=== PATIENT | male | born 1940 | race Caucasian/White ===

== ENCOUNTER 2018-05-03 00:08 | Inpatient (IN) | payer OTHER ==
[~2018-05-03] VITALS: Ht 180.3 cm; Wt 88.9 kg
[2018-05-03] VITALS (16 sets, daily range): BP systolic 131–177; BP diastolic 48–96
[2018-05-03] MEDS ORDERED: AMITRIPTYLINE H25 M2 PO (00:19)
[2018-05-03] MEDS ORDERED: LISINOPRIL10 MG PO (00:19)
[2018-05-03] MEDS ORDERED: FINASTERIDE5 MG PO (00:19)
[2018-05-03 00:43] LABS: ABSOLUTE BASOPHILS 0.1 thou/uL (0.0-0.2); ABSOLUTE EOSINOPHILS 0.1 thou/uL (0.0-0.7); ABSOLUTE LYMPHOCYTES 1.5 thou/uL (0.8-5.3); ABSOLUTE MONOCYTES 0.7 thou/uL (0.0-1.2); BASOPHILS 0.7 %; EOSINOPHILS 0.6 %; HEMATOCRIT 41.4 % (42.0-52.0); HEMOGLOBIN 14.3 gm/dL (14.0-18.0); LYMPHOCYTES 11.3 %; MCH 29.9 pg (26.0-34.0); MCHC 34.5 g/dL (28.0-37.0); MCV 86.9 fL (80.0-100.0); MPV 8.6 fl. (7.2-11.1); NUCLEATED RBCS 0 /100WBC; PLATELET COUNT* 173 thou/uL (150-400); POLYS 82.4 %; RBC 4.77 mil/uL (4.50-6.00); RDW-CV 13.3 % (10.5-14.5); WBC 13.3 thou/uL (4.0-11.0)
[2018-05-03 00:50] LABS: ANION GAP 8 mmol/L (7-16); BUN 19 mg/dL (7-18); CALCIUM 9.4 mg/dL (8.5-10.1); CHLORIDE 103 mmol/L (98-107); CO2 28 mmol/L (21-32); CREATININE 1.3 mg/dL (0.6-1.3); GLUCOSE 150 mg/dL (70-99); POTASSIUM 3.8 mmol/L (3.5-5.1); SODIUM 139 mmol/L (136-145)
[2018-05-03 00:52] LABS: PROTIME 10.2 Seconds (9.20-11.50)
[2018-05-03 01:01] LABS: ALBUMIN 3.9 g/dL (3.4-5.0); ALKALINE PHOSPHATASE 95 U/L (46-116); NT-PRO BRAIN NAT PEPTIDE 201 pg/mL (<300); SGOT 22 U/L (15-37); SGPT 25 U/L (30-65); TOTAL BILIRUBIN 0.4 mg/dL (<0.1-1.0); TOTAL PROTEIN 7.5 g/dL (6.4-8.2); TROPONIN-I LEVEL <0.06 ng/mL (<0.06)
--- NOTE | 2018-05-03 02:50 | NUR ---
TOOK PERSONAL PRILOSEC PO--DR FERNANDES NOTIFIED
--- NOTE | 2018-05-03 06:10 | NUR ---
PT TO FLOOR APROX 0430. VITALS WNL. SEE MAR. SEE CHARTING. FALL PRECAUTIONS IN PLACE. HOULRY ROUNDING FOR SAFETY.
[2018-05-03 08:53] LABS: CALCIUM 9.2 mg/dL (8.5-10.1); POTASSIUM 3.9 mmol/L (3.5-5.1)
[2018-05-03 09:46] LABS: CHOLESTEROL 159 mg/dL (<200); HDL CHOLESTEROL 39 mg/dL (>40); LDL CHOLESTEROL 101 mg/dL (<100); SERUM ASSESSMENT Clear; TC:HDL 4.1 Ratio (Not establshd); TRIGLYCERIDE 99 mg/dL (<150); VLDL 20 mg/dL (<40)
--- NOTE | 2018-05-03 10:11 | NUR ---
5406 ASSUMED CARE OF PATIENT. PLEASE SEE DOCUMENTED ASSESSMENT. DR MCCORMACK TO SEE PATIENT. PLAN IS FOR HEART CATH
--- NOTE | 2018-05-03 12:08 | NUR ---
PT IN WOUND SPECIALIST, WILL SEE LATER
--- NOTE | 2018-05-03 12:16 | NUR ---
1200 BACK FROM DOCK GUARD. SEE POST CARDIAC CATH CHARTING
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
--- NOTE | 2018-05-03 14:00 | EKG ---
[place] [address] ELECTROCARDIOGRAM REPORT Name: KEIRY ESPINOZA Room: [address] IN ..#: [id number] Admission: 05/03/18 Attend Phys: Rasheed Andrade MD Discharge: Date of : 38 Report #: [id number] THIS REPORT FOR: //name// [facility] ED Test Date: 2018-05-03 Test Time: 00:22:29 Pat Name: KEIRY ALEXIS Department: Room: [facility] Gender: M Apprentice/Lineman: : 1940 Requested By: Keyanna Moses Order Number: [id number] MD: Heron Mcwilliams Measurements Intervals [place] Rate: 67 P: 61 [place]: 171 QRS: 27 QRSD: 97 T: 54 QT: 418 QTc: 442 Interpretive Statements Sinus rhythm Multiple ventricular premature complexes Borderline ST depression, lateral leads ST elevation, consider anterior injury No previous ECG available for comparison Electronically Signed On 05-03-2018 13:59:56 FRAME MAKER by Heron Mcwilliams [email or web address] <ELECTRONICALLY SIGNED> By: Heron Mcwilliams MD, [facility] 05/03/18 5587 0022 0022 Heron Mcwilliams MD, [facility] /EPI
--- NOTE | 2018-05-03 14:01 | EKG ---
[place] [address] ELECTROCARDIOGRAM REPORT Name: KEIRY ESPINOZA Room: [address] IN .R.#: [id number] Admission: 05/03/18 Attend Phys: Rasheed Andrade MD Discharge: Date of : 38 Report #: [id number] THIS REPORT FOR: //name// [facility] ED Test Date: 2018-05-03 Test Time: 00:44:32 Pat Name: KEIRY BERRYVALL Department: Room: [facility] Gender: Landcare Facilitator: Jessica IRWIN : 1940 Requested By: Keyanna Moses Order Number: [id number] MD: Heron Mcwilliams Measurements Intervals [place] Rate: 62 P: 48 CT: 167 QRS: 32 QRSD: 85 T: 70 QT: 408 QTc: 415 Interpretive Statements Sinus rhythm early repolarization Ventricular trigeminy Borderline ST depression, lateral leads Electronically Signed On 05-03-2018 14:00:50 SUPERVISOR IN CIRCUIT TESTING by Heron Mcwilliams [email or web address] <ELECTRONICALLY SIGNED> By: Heron Mcwilliams MD, [facility] 05/03/18 1400 0044 0044 Heron Mcwilliams MD, FAC /EPI
--- NOTE | 2018-05-03 15:20 | NUR ---
CARDIAC REHAB TO SEE PATIENT
--- NOTE | 2018-05-03 15:35 | EKG ---
[place] [address] ELECTROCARDIOGRAM REPORT Name: KEIRY ESPINOZA Room: [address] ADM IN .R.#: [id number] Admission: 05/03/18 Attend Phys: Rasheed Andrade MD Discharge: Date of : 38 Report #: [id number] THIS REPORT FOR: //name// [facility] ED Test Date: 2018-05-03 Test Time: 03:16:33 Pat Name: KEIRY ALEXIS Department: Room: [address] Gender: M Roll Shop Supervisor: [facility] : 1940 Requested By: Keyanna Moses Order Number: [id number] Ladan MD: Heron Mcwilliams Measurements Intervals [place] Rate: 55 P: 54 [place]: 165 QRS: 42 QRSD: 93 T: 74 QT: 425 QTc: 407 Interpretive Statements Sinus bradycardia Multiple ventricular premature complexes Electronically Signed On 05-03-2018 15:35:31 QUALITY ASSURANCE ADVISOR by Heron Mcwilliams [email or web address] <ELECTRONICALLY SIGNED> By: Heron Mcwilliams MD, [facility] 05/03/18 1535 0316 0316 Heron Mcwilliams MD, FACC /EPI
--- NOTE | 2018-05-03 15:45 | EKG ---
[place] [address] ELECTROCARDIOGRAM REPORT Name: KEIRY ESPINOZA Room: [address] ADM IN .R.#: [id number] Admission: 05/03/18 Attend Phys: Rasheed Andrade MD Discharge: Date of : 38 Report #: [id number] THIS REPORT FOR: //name// [facility] Test Date: 2018-05-03 Test Time: 13:25:17 Pat Name: KEIRY ESPINOZA Department: Room: [address] Gender: M Manager Applied: : 1940 Requested By: Heron Mcwilliams Order Number: [id number] Ladan MD: Heron Mcwilliams Measurements Intervals [place] Rate: 58 P: 50 [place]: 169 QRS: 44 QRSD: 94 T: 75 QT: 431 QTc: 424 Interpretive Statements Sinus rhythm Minimal ST depression, anterolateral leads Electronically Signed On 05-03-2018 15:44:56 CONVENTIONAL UNDERWRITER by Heron Mcwilliams [email or web address] <ELECTRONICALLY SIGNED> By: Heron Mcwilliams MD, [facility] 05/03/18 1544 1325 1325 Heron Mcwilliams MD, FACC /EPI
--- NOTE | 2018-05-03 17:24 | NUR ---
PATIENT PROGRESSING TOWARDS GOALS. CARDIAC CATH COMPLETED. CARDIAC REHAB SAW PATIENT. HEARTBURN AND CHEST PAIN RESOLVED WITH NO PVC'S NOTED NOW. SEE POST CATH CHARTING. DR MCCORMACK REVIEWED RESULTS WITH PATIENT. SO INCLUDED IN TEACHING
--- NOTE | 2018-05-03 18:32 | NUR ---
NINE BEAT RUN OF V TACH NOTED AND POSTED ON CHART. PT IS ASYMPTOMATIC.
--- NOTE | 2018-05-03 18:58 | CARD ---
[address] [address] CARDIAC CATH REPORT Name: KEIRY ESPINOZA Room: [address] IN [facility]#: [id number] Admission: 05/03/18 Attend Phys: Rasheed Andrade MD Discharge: Date of : 38 Report #: [id number] THIS REPORT FOR: //name// APPROVED REPORT Study performed: 05/03/2018 10:08:24 Patient Details Patient Status: In-Patient Room #: The patient is a 77 year-old male Event Personnel Heron Mcwilliams Weight Yardage Checker, Cyndie Jackman Heel Coverer Machine Operator, Rocio Butterfield RTR Monitor, Gilberto Aaron (R) Scrub Procedures Performed Art Access - R radial artery Right and Left Heart Cath w/or w/o Coronarie [facility]HC ARTIE Place w/wo Plasty Single RCA Indication Non-STEMI , Chest pain Risk Factors Hypertension Admission/Lab Medications/Medications given during procedure Glycoprotein IllbIlla Inhibitors, Heparin Unfract. Procedure Narrative The patient was brought electively to the Cardiac Catheterization Laboratory and was prepped and draped in a sterile manner. The right wrist was infiltrated with 2% Lidocaine subcutaneous anesthesia. A Slender Glidesheath sheath was inserted into the right radial artery. Coronary angiography was performed using coronary diagnostic catheters. The right coronary system was accessed and visualized with a Diagnostic 6Fr JR4 catheter. The left coronary system was accessed and visualized with a Diagnostic 6Fr JL4 catheter. The left ventricle was accessed and visualized with a Diagnostic 6F angled pigtail catheter. Left ventricular/Aortic Valve gradient assessed via catheter pullback. Left ventriculogram was performed in JETER projection. Closure device was deployed with a 6 Fr Vasc-Band Reg 24cm. Hemostasis was obtained with manual pressure following sheath removal without any complications. [place] [address] CARDIAC CATH REPORT Name: KEIRY ESPINOZA Room: [address] IN [facility].#: [id number] Admission: 05/03/18 Attend Phys: Rasheed Andrade MD Discharge: Date of : 38 Report #: [id number] procedure well and there were no complications associated with the procedure. There was no hematoma. Intraoperative Conscious Sedation Sedation start time: 1045 Case end Time: 1139 Versed 2 mg Fluoro Time: 13.1 minutes Dose: DAP 642253 cGycm2 1928 mGy Contrast Type and Amount: Omnipaque 380 ml Coronary Angiography The patient's coronary anatomy is co- dominant. Diagnostic Cath Left Main 0% stenosis LAD chronically occluded after the 2nd diagonal branch Diagonal 2 50% mid stenosis Circumflex 0% stenosis Right Coronary 80% proximal and 80% mid stenosis noted Left Ventriculography The left ventricular ejection fraction is estimated to be 35-40%. Left ventricular wall motion abnormalities are present. There is no mitral insufficiency. moderate hypokinesis noted of the mid and distal anterior wall and apex Hemodynamics The aortic pressure is 144/64 mmHg with a mean of 94 mmHg. The left ventricular pressure is 128/15 mmHg with a mean of mmHg. The left ventricular end diastolic pressure is 21 mmHg. There was no gradient across the aortic valve upon pullback. Pullback from the left ventricle to the aorta revealed no gradient across the aortic valve. PCI Technique Lesion Anticoagulation was achieved with Heparin. bolus of iv aggrastat given Patient was preloaded with Brillinta. Percutaneous coronary intervention was performed on the mid right coronary artery. The lesion stenosis prior to intervention was 80% with JESUS 3 flow. A 6Fr jcr4 Guide Catheter was used to engage the rca ostium. A BMW 190cm Interventional Guidewire was used to cross the lesion. BALLOON DILATION A Balloon catheter Trek RX 2.5 X 8 was inserted [place] [address] CARDIAC CATH REPORT Name: KEIRY ESPINOZA Room: [address]#: [id number] Admission: 05/03/18 Attend Phys: Rasheed Andrade MD Discharge: Date of : 38 Report #: [id number] 16.00atm for 15seconds. Repeat angiography revealed the following post-dilatation results: 30% stenosis. unable to cannulate rca ostium with neither am right amplatz I nor left amplatz I guide catheter STENT DEPLOYMENT A drug-eluting stent Rome RX Stent 2.92W01sa was inserted and inflated up to 14.00atm for 9seconds. Repeat angiography revealed the following post-stent deployment results: 0% stenosis. Additional Inflation: 17.00atm for 13seconds. Final angiography reveals 0 % stenosis with JESUS 3 flow. PCI Technique Lesion 2 Percutaneous Coronary Intervention was performed on the proximal right coronary artery. Percutaneous coronary intervention was performed on the proximal right coronary artery. The lesion stenosis prior to intervention was 80% with JESUS 3 flow. A 6Fr 3DRC Guide Catheter was used to engage the rca ostium. A BMW 190cm Interventional Guidewire was used to cross the lesion. Balloon Dilation A Balloon catheter Trek RX 2.5 X 8 was inserted and inflated up to 16.00atm for 3seconds. Repeat angiography revealed the following post-dilatation results: 30% stenosis. Stent Deployment A drug-eluting stent Rome RX Stent 2.44G20sz was inserted and inflated up to 14.00atm for 13seconds. Repeat angiography revealed the following post-stent deployment results: 0% stenosis. Additional Inflation: 20.00atm for 17seconds. Final angiography reveals 0 % stenosis with JESUS 3 flow. 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 80% stenosis noted of the proximal and mid rca 3. LVEF of 35-40% 4. successful placement of 2 drug eluting stents in the rca Recommendations Cardiac Rehabilitation Referral [facility] [place] [address] CARDIAC CATH REPORT Name: KEIRY ESPINOZA Room: [address] IN [facility].#: [id number] Admission: 05/03/18 Attend Phys: Rasheed Andrade MD Discharge: Date of : 38 Report #: [id number] Medications Administered Ticagrelor <ELECTRONICALLY SIGNED> By: Heron Mcwilliams MD, FACC 05/03/181856 56 56Dakeyanna Mcwilliams MD, FAC /INF
[2018-05-03 23:08] LABS: GLYCOHEMOGLOBIN (HGB A1C) 5.7 % (4.8-5.6)
[2018-05-04] VITALS: BP 173/85
[2018-05-04 00:50] LABS: HEMATOCRIT 41.7 % (42.0-52.0); HEMOGLOBIN 14.3 gm/dL (14.0-18.0); MCH 29.8 pg (26.0-34.0); MCHC 34.2 g/dL (28.0-37.0); MPV 8.7 fl. (7.2-11.1); RBC 4.79 mil/uL (4.50-6.00); RDW-CV 13.2 % (10.5-14.5); WBC 13.3 thou/uL (4.0-11.0)
--- NOTE | 2018-05-04 00:51 | NUR ---
PATIENTS MONITOR ALARMED AT [facility]. STAFF RESPONDED TO ROOM AND CALLED A CODE. COMPRESSIONS STARTED AND PATIENT WAS SHOCKED ONE TIME. PATIENT WOKE UP AFTER COMPRESSIONS RESTARTED POST SHOCK. CARDIOLOGY PAGED STAT. S/O CONTACTED, MESSAGE LEFT. DESIGNATED CONTACT CALLED, LEFT MESSAGE. LABS DRAWN, EKG AND VITALS OBTAINED POST ARREST. PATIENT BEING MOVED TO A ROOM CLOSER TO THE NURSES STATION. SIG OTHER RETURNED CALL AND SHE IS ON HER WAY IN.
[2018-05-04 00:58] LABS: CALCIUM 8.9 mg/dL (8.5-10.1); CREATININE 1.1 mg/dL (0.6-1.3); POTASSIUM 3.6 mmol/L (3.5-5.1)
[2018-05-04 04:00] VITALS: BP 124/67
[2018-05-04 05:12] LABS: HEMATOCRIT 39.2 % (42.0-52.0); HEMOGLOBIN 13.5 gm/dL (14.0-18.0); MCH 29.9 pg (26.0-34.0); MCHC 34.3 g/dL (28.0-37.0); MCV 86.9 fL (80.0-100.0); RBC 4.51 mil/uL (4.50-6.00); RDW-CV 13.1 % (10.5-14.5); WBC 13.1 thou/uL (4.0-11.0)
--- NOTE | 2018-05-04 05:54 | NUR ---
ASSUMED PATIENT CAREA AT 1900. PATIETN ALERT AND ORIENTED TIMES FOUR. CENTRAL LINE IN PLACE AND PATENT TO FLUSHES AND BLOOD DRAW. NO SKIN ISSUES NOTED AT THIS TIME. STATES "THE SWELLING IN MY SCROTUM IS GOING DOWN." ABLE TO AMBULATE TO THE RESTROOM INDEPENDENTLY. REMAINED ON 2L VIA NC THROUGH THE NIGHT. HOURLY ROUNDING AND PC TECHNICIAN COMPLETED CHARTED.
[2018-05-04 06:08] LABS: CALCIUM 8.8 mg/dL (8.5-10.1); MAGNESIUM 2.2 mg/dL (1.8-2.4)
[2018-05-04 06:09] LABS: TROPONIN-I LEVEL 18.58 ng/mL (<0.06)
--- NOTE | 2018-05-04 10:46 | CON ---
[address] [address] CONSULTATION Name: KEIRY ESPINOZA Room: [address] IN M.R.#: [id number] Admission: 05/03/18 Attend Phys: Rasheed Andrade MD Discharge: Date of : 38 Report #: [id number] THIS REPORT FOR: //name// CC: Rasheed Puentes DO DATE OF SERVICE: 05/03/2018 HISTORY OF PRESENT ILLNESS: The patient is a 77-year-old single white male who I was asked to see in the hospital after he complained of chest pain. The patient has no previous history of heart disease. He apparently has had a stress test in the past including one about 6 months ago at [place] and told there was no evidence of significant heart disease. He does go to the [facility] for his medications. He notes he was doing really well until yesterday he was attempting to retrieve a large objct from the trunk of his car. He struggled with it for a couple of hours. He then noticed a burning in his chest. There is no radiation to his arms or jaw. He did feel somewhat nauseated, short of breath. It persisted, so he finally came to the Emergency Room last night and was admitted. He denied the burning to be related to food. He had a little bit of flatulence, but no belching. He has had no recent blood in stool. He denied any recent fever or cough. He denied any trauma to his chest. He denied any rash on his chest. He has had no recent leg pain. He denied any exertional dyspnea, palpitations or syncope. PAST MEDICAL HISTORY: He has had previous hernia repair, mastoid surgery as a child, sinus surgery. He has been diagnosed with prostate cancer. He has sleep apnea, uses CPAP. He has high blood pressure. MEDICATIONS: Consist of Proscar, Elavil, lisinopril. ALLERGIES: He has an intolerance to AMOXICILLIN. FAMILY HISTORY: His mother had heart disease. SOCIAL HISTORY: He has been . He is single. 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 Lives here in [place]. No smoking. Drinks about 2 beers a day. REVIEW OF SYSTEMS: He has had no history of stroke. He has had peptic ulcer. No liver disease, no kidney disease, no acute psychiatric illness, no chronic skin condition. PHYSICAL EXAMINATION: GENERAL: Revealed an elderly male, lying in bed, appeared in no distress. VITAL SIGNS: He had a blood pressure of 140/70, pulse 60. [place] [address] CONSULTATION Name: KEIRY ESPINOZA Room: [address]#: [id number] Admission: 05/03/18 Attend Phys: Rasheed Andrade MD Discharge: Date of : 38 Report #: [id number] HEENT: He is anicteric. Conjunctivae pink. Mucous membranes moist. NECK: Veins nondistended. No carotid bruits. Neck supple. CHEST: Clear to auscultation. CARDIAC: Regular rate and rhythm without murmur. ABDOMEN: Soft, nontender. EXTREMITIES: Had no edema. Posterior tibial pulse 1+ bilaterally. SKIN: Cool and dry. NEUROLOGIC: Nonfocal. LYMPH: No adenopathy. MUSCULOSKELETAL: No joint effusion. DIAGNOSTIC DATA: His ECG on admission last night showed a sinus bradycardia, occasional PVC. There was an episode of trigeminy, nonspecific ST-segment changes were noted. There did appear to be early repolarization in leads V1 and V2. His workup in the Emergency Room last night, he had a portable chest x-ray that showed cardiomegaly, clear lung de jesus. LABORATORY DATA: Sodium 139, creatinine 1.3, glucose was 150. His troponin initially 0.06, second set was 0.11. White blood cell count 13.3, hemoglobin 14.3. IMPRESSION AND RECOMMENDATIONS: 1. Unstable angina. Recommend cardiac catheterization. 2. Hypertension. The patient is on DAVID inhibitor. 3. Elevated blood sugar, ruling out diabetes. 4. History of prostate cancer. 5. History of peptic ulcer disease. <ELECTRONICALLY SIGNED> By: Heron Mcwilliams MD, FACC 05/04/18 1046 0737 1102Davieron Mcwilliams MD, FACC /nt
[2018-05-04 11:53] VITALS: BP 98/54
--- NOTE | 2018-05-04 13:46 | EKG ---
[place] [address] ELECTROCARDIOGRAM REPORT Name: KEIRY ESPINOZA Room: [address] IN .R.#: [id number] Admission: 05/03/18 Attend Phys: Rasheed Andrade MD Discharge: Date of : 38 Report #: [id number] THIS REPORT FOR: //name// [facility] Test Date: 2018-05-04 Test Time: 00:43:18 Pat Name: KEIRY ESPINOZA Department: Room: [facility] Gender: M Market Consultant: : 1940 Requested By: Heron Mcwilliams Order Number: [id number] Reading MD: Hank Deleon Measurements Intervals [place] Rate: 68 P: 43 [place]: 159 QRS: 14 QRSD: 92 T: 66 QT: 410 QTc: 437 Interpretive Statements Sinus rhythm Anteroseptal infarct, age indeterminate Compared to ECG 05/03/2018 13:25:17 Myocardial infarct finding now present ST (T wave) deviation no longer present Electronically Signed On 05-04-2018 13:46:13 IRON ASSORTER by Hank Deleon [email or web address] <ELECTRONICALLY SIGNED> By: Hank Deleon MD, FAC 05/04/18 1346 0043 0043 Hank Deleon MD, [facility] /EPI
--- NOTE | 2018-05-04 13:47 | EKG ---
[place] [address] ELECTROCARDIOGRAM REPORT Name: KEIRY ESPINOZA Room: [address] ADM IN M.R.#: [id number] Admission: 05/03/18 Attend Phys: Rasheed Andrade MD Discharge: Date of : 38 Report #: [id number] THIS REPORT FOR: //name// [facility] Test Date: 2018-05-04 Test Time: 09:36:28 Pat Name: KEIRY ALEXIS Department: Room: [address] Gender: M Hand Developer: : 1940 Requested By: Hank Deleon Order Number: [id number] Reading MD: Hank Deleon Measurements Intervals [place] Rate: 57 P: 33 [place]: 163 QRS: 21 QRSD: 91 T: 86 QT: 439 QTc: 428 Interpretive Statements Sinus rhythm Ventricular premature complex Anterior infarct, age indeterminate Compared to ECG 05/03/2018 13:25:17 Ventricular premature complex(es) now present Myocardial infarct finding now present ST (T wave) deviation no longer present Electronically Signed On 05-04-2018 13:47:41 NUTRITION AIDES TEACHER by Hank Deleon [email or web address] <ELECTRONICALLY SIGNED> By: Hank Deleon MD, FACC 05/04/18 1347 0936 0936 Hank Deleon MD, FACC /EPI
[2018-05-04 16:23] VITALS: BP 109/55
[2018-05-04 20:00] VITALS: BP 106/52
[2018-05-04 23:55] VITALS: BP 111/64
[2018-05-05 04:00] VITALS: BP 104/58
--- NOTE | 2018-05-05 05:20 | NUR ---
PATIENT ARRIVED ON UNIT AT APPROX 5. FAMILY AT BEDSIDE. ADMISSION ASSESSMENT COMPLETED DOCUMENTED AND SOME EDUCATION DONE ON MEDICATIONS AND DIET. NO SKIN ISSUES NOTED. PATIENT VERBALIZED UNDERSTANDING OF ADMISSION. MANAGER SUPPORT AND HOURLY ROUNDING COMPLETED DOCUMENTED. BLOOD SUGARS CHECKED THROUGHOUT NIGHT
--- NOTE | 2018-05-05 05:39 | NUR ---
ASSUMED PATIENT CARE AT 1900. HOME CPAP HERE AND PATIENT WORE THROUGH THE NIGHT. NSR ON MONITOR THROUGH SHIFT. EDUCATION DONE ON MEDICATIONS AND FOLLOW UP CARE. PATIENT VERBALIZED UNDERSANDING. MINOR COMPLAINTS OF PAIN AT A 1 IN HIS CHEST. EDUCATED PATIENT ABOUT WHAT HAD HAPPENED THE PREV NIGHT. HOURLY ROUNDING AND WELL TESTER COMPLETED DOCUMENTED.
[2018-05-05 07:45] VITALS: BP 118/62
[2018-05-05 10:17] VITALS: BP 168/90
[2018-05-05] MEDS ORDERED: CARVEDILOL3.125 MG PO (10:17)
[2018-05-05] MEDS ORDERED: SPIRONOLACTONE25 MG PO (10:17)
[2018-05-05] MEDS ORDERED: ATORVASTATIN CA40 MG PO (10:17)
[2018-05-05] MEDS ORDERED: BRILINTA90 MG PO (10:17)
[2018-05-05] MEDS ORDERED: ASPIR 8181 MG PO (10:17)
[2018-05-05 12:00] VITALS: BP 102/63
[2018-05-05] MEDS ORDERED: NITROGLYCERIN0.4 MG SUBLING (12:00)
[2018-05-05 16:00] VITALS: BP 138/66
--- NOTE | 2018-05-05 17:38 | NUR ---
ASSUMED PT CARE AT 0730, FULL ASSESMENT DONE CHARTED. PT A/O X4, C/O SOME PAIN WITH INSPIRATION IN SUBSTERNAL CHEST. PT ENCORAGED TO COUGH AND DEEP BREATH, PT DENIES NEED FOR PAIN MEDS. VSS, PT SR/PVC'S ON THE MONITOR, LUISITO AT TIMES. DISCHARGE ORDERS RECIEVED, LIFE VEST REP IN TO FIT PT THIS AFTERNOON. PT AND SO INSTRUCTED ON NEW MEDS, AND FOLLOW UP APPTS. BOTH VERBALIZED UNDERSTANDING. PT LEFT UNIT WITH BELONGINGS AT APPROX 1740 WALKED OUT BY STAFF.
== END 2018-05-05 17:47 | disposition home or self-care (01) | DRG 246 ==
LOC: M.ERS 00:08 → M.TBA-ER 02:26 → M.2W 02:26
PROVIDERS: Emergency Medicine; Internal Medicine; Internal Medicine Cardiovascular Disease; ADMIT Internal Medicine
PROC: 027035Z Dilation of Coronary Artery, One Artery with Two Drug-eluting Intraluminal Devices, Percutaneous Approach (ICD-10-PCS; principal; 2018-05-03)
PROC: B2151ZZ Fluoroscopy of Left Heart using Low Osmolar Contrast (ICD-10-PCS; principal; 2018-05-03)
PROC: 4A023N8 Measurement of Cardiac Sampling and Pressure, Bilateral, Percutaneous Approach (ICD-10-PCS; principal; 2018-05-03)
PROC: B2111ZZ Fluoroscopy of Multiple Coronary Arteries using Low Osmolar Contrast (ICD-10-PCS; principal; 2018-05-03)
DX: I21.4 Non-ST elevation (NSTEMI) myocardial infarction (principal); I50.43 Acute on chronic combined systolic (congestive) and diastolic (congestive) heart failure; I49.01 Ventricular fibrillation; I42.9 Cardiomyopathy, unspecified; I11.0 Hypertensive heart disease with heart failure; I25.110 Atherosclerotic heart disease of native coronary artery with unstable angina pectoris; G47.33 Obstructive sleep apnea (adult) (pediatric); R73.03 Prediabetes; Z88.1 Allergy status to other antibiotic agents; Z88.8 Allergy status to other drugs, medicaments and biological substances; Z85.46 Personal history of malignant neoplasm of prostate; Z82.49 Family history of ischemic heart disease and other diseases of the circulatory system; Z87.11 Personal history of peptic ulcer disease; Z83.3 Family history of diabetes mellitus; Z79.82 Long term (current) use of aspirin; Z79.899 Other long term (current) drug therapy

== ENCOUNTER 2019-09-27 17:50 | Inpatient (IN) | payer MEDICARE ==
[~2019-09-27] VITALS: Ht 180.3 cm; Wt 81.2 kg
[~2019-09-27 17:50] MED LIST: AMITRIPTYLINE H25 M2 PO; ASPIR 8181 MG PO; ATORVASTATIN CA40 MG PO; BRILINTA90 MG PO; CARVEDILOL3.125 MG PO; FINASTERIDE5 MG PO; LISINOPRIL10 MG PO; NITROGLYCERIN0.4 MG SUBLING; SPIRONOLACTONE25 MG PO
[2019-09-27 17:53] VITALS: BP 165/80
[2019-09-27 18:57] LABS: ABSOLUTE EOSINOPHILS 0.1 thou/uL (0.0-0.7); ABSOLUTE LYMPHOCYTES 1.3 thou/uL (0.8-5.3); ABSOLUTE MONOCYTES 0.6 thou/uL (0.0-1.2); ABSOLUTE NEUTROPHILS 5.2 thou/uL (1.6-8.1); BASOPHILS 0.6 %; EOSINOPHILS 1.4 %; HEMATOCRIT 39.3 % (42.0-52.0); HEMOGLOBIN 13.7 gm/dL (14.0-18.0); LYMPHOCYTES 18.1 %; MCH 31.3 pg (26.0-34.0); MCHC 34.8 g/dL (28.0-37.0); MCV 89.8 fL (80.0-100.0); MPV 8.2 fl. (7.2-11.1); NUCLEATED RBCS 0 /100WBC; PLATELET COUNT* 142 thou/uL (150-400); POLYS 71.9 %; RBC 4.37 mil/uL (4.50-6.00); RDW-CV 12.9 % (10.5-14.5); WBC 7.2 thou/uL (4.0-11.0)
[2019-09-27 19:06] LABS: CREATININE 1.2 mg/dL (0.6-1.3); POTASSIUM 4.5 mmol/L (3.5-5.1)
[2019-09-27 19:07] LABS: PROTIME 10.7 Seconds (9.20-11.50)
[2019-09-27 19:16] LABS: TOTAL BILIRUBIN 0.5 mg/dL (<0.1-1.0); TOTAL PROTEIN 7.8 g/dL (6.4-8.2)
[2019-09-27 21:10] VITALS: BP 168/79
--- NOTE | 2019-09-27 21:40 | NUR ---
SEE STEMI PACKET FOR FURTHER DOCUMENTATION
[2019-09-27 22:50] VITALS: BP 141/77
[2019-09-27 23:31] VITALS: BP 122/62
[2019-09-28] VITALS (18 sets, daily range): BP systolic 113–154; BP diastolic 48–77
--- NOTE | 2019-09-28 | NUR ---
PT. ADMITTED TO ROOM 2 POST CARDIAC CATH. 1 STENT TO LAD, 1 STENT TO CIRCUMFLEX. RIGHT GROIN SITE C/D/I. BEDSIDE REPORT RECEIVED. PT. SINUS LUISITO ON MONITOR. ORIENTED TO ROOM, CALL LIGHT IN REACH.
[2019-09-28 05:06] LABS: HEMATOCRIT 39.3 % (42.0-52.0); HEMOGLOBIN 13.6 gm/dL (14.0-18.0); MCH 31.4 pg (26.0-34.0); MCHC 34.7 g/dL (28.0-37.0); MCV 90.6 fL (80.0-100.0); MPV 8.8 fl. (7.2-11.1); RBC 4.34 mil/uL (4.50-6.00); RDW-CV 13.3 % (10.5-14.5); WBC 7.7 thou/uL (4.0-11.0)
[2019-09-28 05:35] LABS: ALBUMIN 3.4 g/dL (3.4-5.0); ALKALINE PHOSPHATASE 77 U/L (46-116); ANION GAP 7 mmol/L (7-16); BUN 17 mg/dL (7-18); CALCIUM 8.6 mg/dL (8.5-10.1); CHLORIDE 105 mmol/L (98-107); CHOLESTEROL 81 mg/dL (<200); CK-MB MASS 25.8 ng/mL (<0.5-3.6); CO2 25 mmol/L (21-32); CREATININE 1.2 mg/dL (0.6-1.3); GLUCOSE 112 mg/dL (70-99); HDL CHOLESTEROL 30 mg/dL (>40); LDL CHOLESTEROL 20 mg/dL (<100); POTASSIUM 4.2 mmol/L (3.5-5.1); SGOT 32 U/L (15-37); SGPT 20 U/L (30-65); SODIUM 137 mmol/L (136-145); TC:HDL 2.7 Ratio (Not establshd); TOTAL BILIRUBIN 0.4 mg/dL (<0.1-1.0); TOTAL PROTEIN 6.9 g/dL (6.4-8.2); TRIGLYCERIDE 158 mg/dL (<150); VLDL 32 mg/dL (<40)
[2019-09-28 05:39] LABS: SERUM ASSESSMENT CLEAR; TROPONIN-I LEVEL 3.38 ng/mL (<0.06)
[2019-09-28] MEDS ORDERED: PRILOSEC OTC20 MG PO (09:35)
--- NOTE | 2019-09-28 10:45 | CON ---
[address] [address] CONSULTATION Name: KEIRY ESPINOZA Room: [address] IN .R.#: [id number] Admission: 09/27/19 Attend Phys: Shanda Thomason Discharge: Date of : 38 Report #: [id number] THIS REPORT FOR: //name// cc: David Puentes John E. DO ~ THIS REPORT FOR: //name// CC: David Chen DATE OF SERVICE: 09/27/2019 CARDIOLOGY CONSULTATION INDICATION: Chest pain. HISTORY OF PRESENT ILLNESS: This is an 78-year-old gentleman with a history of NV, stent, hypertension, hypercholesterolemia and prostate cancer, presenting with chest pain. This morning, he woke up with substernal chest pain. It lasted on and off throughout the day. He denies any shortness of breath, fever, chills or nausea. In the ER, the initial EKG revealed some ST segment depressions. His pain had resolved by the time he had come to the ER. Shortly thereafter, he had return of his chest pain. A repeat EKG revealed ST segment elevation in the inferior leads and ST depression in the septal leads. PAST MEDICAL HISTORY: He presented with an NV in 2019, undergoing placement of a stent to the RCA. He was found to have a severe occlusion in the LAD, treated medically. EF in the 40% range at that time. Hypertension, hypercholesterolemia. ALLERGIES: PENICILLIN. MEDICATIONS: Include: 1. Coreg. 2. Aspirin. 3. Lisinopril. 4. Spironolactone. 5. Lipitor. SOCIAL HISTORY: Denies tobacco use. FAMILY HISTORY: Negative for premature CAD. REVIEW OF SYSTEMS: A full 10-point review of systems performed. Only the pertinent positives and negatives are described [place] [address] CONSULTATION Name: KEIRY ESPINOZA Candace Room: [address]#: [id number] Admission: 09/27/19 Attend Phys: Shanda Thomason Discharge: Date of : 38 Report #: [id number] PHYSICAL EXAMINATION: VITAL SIGNS: Blood pressure is 130/70, heart rate is 80 beats per minute. GENERAL APPEARANCE: This is an elderly appearing male, in mild distress. HEENT: Normocephalic, atraumatic. Oral mucosa moist. NECK: Supple. LUNGS: CTA. CARDIAC: Regular rate and rhythm. S1, S2 positive. ABDOMEN: Soft, nontender. EXTREMITIES: No cyanosis, no edema. LABORATORY DATA: ECG reveals sinus rhythm, [address] elevations in leads III and aVF, ST segment depressions in V2. ASSESSMENT AND PLAN: 1. Acute inferior wall myocardial infarction. The patient will be taken emergently to the cardiac dentures lab technician. The risks and benefits and alternatives of the procedure were discussed with the patient and . The patient voices understanding and wishes to proceed. 2. Hypertension. Continue with Coreg and lisinopril. 3. Hypercholesterolemia. Continue with statin therapy. <ELECTRONICALLY SIGNED> By: Dallin Olivas MD 09/28/19 1045 2215 [id number] Olivas MD /nt
--- NOTE | 2019-09-28 10:54 | CARD ---
[address] [address] CARDIAC CATH REPORT Name: KEIRY ESPINOZA Room: [address] IN [facility]#: [id number] Admission: 09/27/19 Attend Phys: Shanda Thomason Discharge: Date of : 36 Report #: [id number] THIS REPORT FOR: //name// cc: David Puentes John E. DO ~ APPROVED REPORT Study performed: 09/27/2019 20:51:16 Patient Details Patient Status: ED Room #: 16 The patient is a 78 year-old male Event Personnel Dallin Olivas Signal Helper, Davon Sosa RN Explosives Detonator, Mecca Mccoy RN Monitor, Raul Allen RTR Scrub Procedures Performed Art Access - R femoral artery* Left Heart Cath w/or w/o Coronaries ARTIE Place w/wo Plasty Single CIRC ARTIE Place w/wo Plasty Single LAD Indication STEMI (>0 to less than or equal to 6 hours), Dyspnea, Chest pain Risk Factors Hypercholesterolemia, Coronary Artery DiseaseHypertension Previous Procedures/Diagnoses Previous PCI, Previous HI Admission/Lab Medications/Medications given during procedure Aspirin, Glycoprotein IllbIlla Inhibitors, Platelet Aff. Inhib., Heparin Unfract. Procedure Narrative The patient was brought emergently to the Cardiac Catheterization Laboratory and was prepped and aped in a sterile manner. The right femoral was infiltrated with 2% Lidocaine subcutaneous anesthesia. A [place] 6 FR sheath was inserted into the right femoral artery. Coronary angiography was performed using coronary diagnostic catheters. The right coronary system was accessed and visualized with a Diagnostic JR4 6Fr catheter. The left coronary system was accessed and visualized with a Diagnostic JL4 6Fr catheter[place] [address] CARDIAC CATH REPORT Name: KEIRY ESPINOZA Room: [address]#: [id number] Admission: 09/27/19 Attend Phys: Shanda Thomason Discharge: Date of : 36 Report #: [id number] was accessed and visualized with a Diagnostic Pigtail catheter. The patient tolerated the procedure well and there were no complications associated with the procedure. There was no hematoma. Intraoperative Conscious Sedation Sedation start time: 9:25 Case end Time: 10:09 Fentanyl 25 mcg Versed 1 mg Fluoro Time: 10.2 minutes Dose: DAP 187126 cGycm2 2452 mGy Contrast Type and Amount: Visipaque 190 ml Coronary Angiography The patient's coronary anatomy is co- dominant. Diagnostic Cath Left Main This is a large-caliber vessel, patent with no flow-limiting lesions. LAD The patient has a prior history of anterior wall HI. The LAD is a moderate-sized caliber vessel with a severe, discrete stenosis in the proximal segment, at least 95%. The mid and distal segments are patent with no flow-limiting lesions. Circumflex The left circumflex artery is a codominant vessel, with a severe occlusion, at least 95% in the mid/distal segment. There is JESUS II blood flow to the distal OM branches. OM1 This is a moderate-sized caliber vessel, with no flow-limiting lesions. OM2 This is a moderate-sized caliber vessel, with no flow-limiting lesions. OM3 This is a patent vessel, with no flow-limiting lesions. Right Coronary There are patent stents in the midsegment of the RCA, with mild restenosis. Supplies a small PDA vessel. R PDA This is a small caliber vessel, with no flow-limiting lesions. Left Ventriculography The left ventricle is mildly dilated in size with Decreased contractility. The left ventricular ejection fraction is estimated to be 30%. Left ventricular wall motion abnormalities are present. Hemodynamics The aortic pressure is 130/43 mmHg with a mean of 79 mmHg. The left ventricular pressure is 131/7 mmHg with a mean of mmHg. The left ventricular end diastolic pressure is 18 mmHg. [place] [address] CARDIAC CATH REPORT Name: KEIRY ESPINOZA Room: [address] IN .R.#: [id number] Admission: 09/27/19 Attend Phys: Shanda Thomason Discharge: Date of : 38 Report #: [id number] across the aortic valve upon pullback. PCI Technique Lesion Anticoagulation was achieved with Heparin and Aggrastat. Patient was preloaded with Brillinta. Percutaneous coronary intervention was performed on the Mid/distal circumflex artery segment. The lesion stenosis prior to intervention was 99% with JESUS 2 flow. A 6FR XB 3.5 100CM Guide Catheter was used to engage the Left main ostium. A IG: Luge Wire 180 Interventional Guidewire was used to cross the lesion. BALLOON DILATION A Balloon catheter Euphora SC 2.25x12 was inserted and inflated up to 8.00atm for 5seconds. Additional Inflation: 8.00atm for 9seconds. Additional Inflation: 8.00atm for 8seconds. STENT DEPLOYMENT A drug-eluting stent Surry RX Stent 2.5X15mm was inserted and inflated up to 16.00atm for 19seconds. Final angiography reveals 0 % stenosis with JESUS 3 flow. PCI Technique Lesion 2 Percutaneous Coronary Intervention was performed on the proximal left anterior descending artery segment. Patient was preloaded with Brillinta. The lesion stenosis prior to intervention was 95% with JESUS 3 flow. A 6FR XB 3.5 100CM Guide Catheter was used to engage the Left Main ostium. A IG: Luge Wire 180 Interventional Guidewire was used to cross the lesion. Balloon Dilation A Balloon catheter Euphora SC 2.25x12 was inserted and inflated up to 10.00atm for 6seconds. Stent Deployment A drug-eluting stent Surry RX Stent 2.40X54dr was inserted and inflated up to 18.00atm for 10seconds. Final angiography reveals 0 % stenosis with JESUS 3 flow. Conclusion 1. Successful insertion of a drug-eluting stent into a codominant left circumflex vessel. 2. Successful insertion of a drug-eluting stent into the proximal LAD. [address] [address] CARDIAC CATH REPORT Name: ALEXIS,KEIRY B Room: [facility] IN M.R.#: [id number] Admission: 09/27/19 Attend Phys: Shanda Thomaosn Discharge: Date of : 38 Report #: [id number] 3. There are patent stents in the RCA with mild restenosis. 4. There is moderately severe ischemic cardiomyopathy. 5. Recommend dual antiplatelet therapy and guideline directed medical therapy. <ELECTRONICALLY SIGNED> By: Dallin Olivas MD 09/28/19 1051 1051 1051Dallin Olivas MD /INF
--- NOTE | 2019-09-28 12:27 | 2DMMODE ---
[place] [address] 2 D/M-MODE ECHOCARDIOGRAM Name: KEIRY ESPINOZA Room: [address] IN .R.#: [id number] Admission: 09/27/19 Attend Phys: Sebastian Chen Discharge: Date of : 36 Date of Service: 09/28/19 1225 Report #: [id number] THIS REPORT FOR: cc: David Puentes John E. DO Holkins,David Lanier MD [facility] ~ APPROVED REPORT Study performed: 09/28/2019 09:19:22 EXAM: Comprehensive 2D, Doppler, and color-flow Echocardiogram Patient Location: In-Patient BSA: 1.99 HR: 69 bpm BP: 120/57 mmHg Other Information Study Quality: Good Indications Myocardial Infarction 2D Dimensions IVSd: 14.26 (7-11mm) LVOT Diam: 20.76 (18-24mm) LVDd: 48.59 mm PWd: 11.65 (7-11mm) Ascending Ao: 35.84 (22-36mm) LVDs: 36.55 (25-40mm) Aortic Root: 24.99 mm Volumes Left Atrial Volume (Systole) LA ESV Index: 26.30 mL/m2 Aortic Valve AoV Peak Michel.: 1.35 m/s AO Peak Gr.: 7.34 mmHg LVOT Max P.45 mmHg AO Mean Gr.: 4.15 mmHg LVOT Mean P.78 mmHg LVOT Max V: 0.93 m/s AO V2 VTI: 33.08 cm LVOT Mean V: 0.62 m/s SEAN (VTI): 1.96 cm2 LVOT V1 VTI: 19.14 cm Mitral Valve E/A Ratio: 1.12 [place] [address] 2 D/M-MODE ECHOCARDIOGRAM Name: KEIRY ESPINOZA Room: [address]#: [id number] Admission: 09/27/19 Attend Phys: Sebastian Chen Discharge: Date of : 36 Date of Service: 09/28/19 1225 Report #: [id number] MV Decel. Time: 147.11 ms MV E Max Michel.: 0.82 m/s MV PHT: 42.66 ms MVA (PHT): 5.16 cm2 TDI E/Lateral E': 9.11 E/Medial E': 9.11 Medial E' Michel.: 0.09 m/s Lateral E' Michel.: 0.09 m/s Pulmonary Valve PV Peak Michel.: 0.92 m/s PV Peak Gr.: 3.38 mmHg Tricuspid Valve RAP Estimate: 15.00 mmHg TR Peak Gr.: 41.33 mmHg RVSP: 56.33 mmHg PA Pressure: 56.33 mmHg Left Ventricle The left ventricle is normal size. There is distal septal and anteroapical hypokinesis. There is normal left ventricular wall thickness. Left ventricular systolic function is mild to moderately decreased. LVEF is 40-45%. Grade I - abnormal relaxation pattern. Right Ventricle The right ventricle is normal size. The right ventricular systolic function is normal. Atria The left atrium size is normal. The right atrium size is normal. Aortic Valve Mild aortic valve sclerosis. No aortic regurgitation is present. There is no aortic valvular stenosis. Mitral Valve The mitral valve is normal in structure. Mild mitral regurgitation. No evidence of mitral valve stenosis. Tricuspid Valve The tricuspid valve is normal in structure. Trace tricuspid regurgitation[place] [address] 2 D/M-MODE ECHOCARDIOGRAM Name: TACO ESPINOZAOLD Candace Room: [address]#: [id number] Admission: 09/27/19 Attend Phys: Sebastian Chen Discharge: Date of : 36 Date of Service: 09/28/19 1225 Report #: [id number] The pulmonary valve is normal in structure. There is no pulmonic valvular regurgitation. Great Vessels The aortic root is normal in size. IVC is normal in size and collapses <50% with inspiration. Pericardium There is no pericardial effusion. <Conclusion> The left ventricle is normal size. There is normal left ventricular wall thickness. Left ventricular systolic function is mild to moderately decreased. LVEF is 40-45%. Grade I - abnormal relaxation pattern. The right ventricle is normal size. The left atrium size is normal. Mild aortic valve sclerosis. No aortic regurgitation is present. There is no aortic valvular stenosis. The mitral valve is normal in structure. Mild mitral regurgitation. The tricuspid valve is normal in structure. IVC is normal in size and collapses <50% with inspiration. There is no pericardial effusion. There is distal septal and anteroapical hypokinesis. <ELECTRONICALLY SIGNED> By: David Soares MD, FACC 09/28/19 1225 1225 1225 David Soares MD, FACC /INF
--- NOTE | 2019-09-28 16:06 | EKG ---
[place] [address] ELECTROCARDIOGRAM REPORT Name: KEIRY ESPINOZA Room: [address] IN .R.#: [id number] Admission: 09/27/19 Attend Phys: Sebastian Chen Discharge: Date of : 36 Date of Service: 09/27/19 1753 Report #: [id number] THIS REPORT FOR: //name// [facility] ED Test Date: 2019-09-27 Test Time: 17:53:10 Pat Name: KEIRY ALEXIS Department: Room: [facility] Gender: M Railroad Detective: MIRYAM : 1940 Requested By: Ady Lisa Order Number: [id number] MD: David Soares Measurements Intervals [place] Rate: 61 P: 55 ME: 170 QRS: 55 QRSD: 90 T: 91 QT: 397 QTc: 400 Interpretive Statements Sinus rhythm Multiple ventricular premature complexes Repol abnrm ; possible anterior ischemia Compared to ECG 05/04/2018 09:36:28 Early repolarization now present Possible ischemia now present Myocardial infarct finding no longer present Electronically Signed On 09-28-2019 16:04:54 CDT by David Soares [email or web address] <ELECTRONICALLY SIGNED> By: David Soares MD, [facility] 09/28/19 1604 1753 1753 David Soares MD, [facility] /EPI
--- NOTE | 2019-09-28 16:08 | EKG ---
[place] [address] ELECTROCARDIOGRAM REPORT Name: KEIRY ESPINOZA Room: [address] IN M.R.#: [id number] Admission: 09/27/19 Attend Phys: Sebastian Chen Discharge: Date of : 36 Date of Service: 09/27/192002 Report #: [id number] THIS REPORT FOR: //name// [facility] ED Test Date: 2019-09-27 Test Time: 20:03:26 Pat Name: KEIRYNIDA ESPINOZA Department: Room: [facility] Gender: M Chief Of Service: : 1940 Requested By: Anjelica Nicholas Order Number: [id number] MD: David Soares Measurements Intervals [place] Rate: 50 P: 54 AK: 182 QRS: 43 QRSD: 96 T: 86 QT: 416 QTc: 380 Interpretive Statements Sinus rhythm Subtle inferior ST elevation suggesting injury with possible posterior Compared to ECG 05/04/2018 09:36:28 Possible ischemia now present ST (T wave) deviation now present Ventricular premature complex(es) no longer present Electronically Signed On 09-28-2019 16:06:42 CDT by David Soares [email or web address] <ELECTRONICALLY SIGNED> By: David Soares MD, [facility] 09/28/19 1606 02 02 David Soares MD, [facility] /EPI
--- NOTE | 2019-09-28 16:09 | EKG ---
[place] [address] ELECTROCARDIOGRAM REPORT Name: KEIRY ESPINOZA Room: [address] IN .R.#: [id number] Admission: 09/27/19 Attend Phys: Sebastian Chen Discharge: Date of : 36 Date of Service: 09/27/192007 Report #: [id number] THIS REPORT FOR: //name// [facility] ED Test Date: 2019-09-27 Test Time: 20:08:27 Pat Name: KEIRY ALEXIS Department: Room: [facility] Gender: M Ground Wirer: : 1940 Requested By: Ady Lisa Order Number: [id number] MD: David Soares Measurements Intervals [place] Rate: 53 P: 50 ID: 190 QRS: 26 QRSD: 94 T: 47 QT: 422 QTc: 397 Interpretive Statements Sinus rhythm Possible inferior scar Minimal ST depression, anterolateral leads Compared to ECG 05/04/2018 09:36:28 ST (T wave) deviation now present Ventricular premature complex(es) no longer present Inferior and right precordial ST-T alterations have remitted Electronically Signed On 09-28-2019 16:07:42 CDT by David Soares [email or web address] <ELECTRONICALLY SIGNED> By: David Soares MD, [facility] 09/28/19 1607 07 07 David Soares MD, [facility] /EPI
--- NOTE | 2019-09-28 16:11 | EKG ---
[place] [address] ELECTROCARDIOGRAM REPORT Name: KEIRY ESPINOZA Room: [address] IN .R.#: [id number] Admission: 09/27/19 Attend Phys: Sebastian Chen Discharge: Date of : 36 Date of Service: 09/27/192028 Report #: [id number] THIS REPORT FOR: //name// [facility] ED Test Date: 2019-09-27 Test Time: 20:29:44 Pat Name: KEIRY ALEXIS Department: Room: [facility] Gender: M Ship Runner: CLARK : 1940 Requested By: Ady Lisa Order Number: [id number] MD: David Soares Measurements Intervals [place] Rate: 49 P: 47 HI: 183 QRS: 41 QRSD: 105 T: 85 QT: 429 QTc: 388 Interpretive Statements Sinus bradycardia ST elevation, consider inferior injury ST depression V1-V3, suggest involvement of posterior leads Compared to ECG 05/04/2018 09:36:28 Possible ischemia or injury now present ST (T wave) deviation now present Sinus rate has decreased Ventricular premature complex(es) no longer present Electronically Signed On 09-28-2019 16:08:54 CDT by David Soares [email or web address] <ELECTRONICALLY SIGNED> By: David Soares MD, [facility] 09/28/19 1608 28 28 David Soares MD, [facility] /EPI
--- NOTE | 2019-09-28 16:12 | EKG ---
[place] [address] ELECTROCARDIOGRAM REPORT Name: KEIRY ESPINOZA Room: [address] IN .R.#: [id number] Admission: 09/27/19 Attend Phys: Sebastian Chen Discharge: Date of : 36 Date of Service: 09/27/192052 Report #: [id number] THIS REPORT FOR: //name// [facility] ED Test Date: 2019-09-27 Test Time: 20:53:51 Pat Name: KEIRY ALEXIS Department: Room: [facility] Gender: M Database Designer: : 1940 Requested By: Ady Lisa Order Number: [id number] MD: David Soares Measurements Intervals [place] Rate: 52 P: 37 WI: 199 QRS: 16 QRSD: 88 T: 85 QT: 413 QTc: 384 Interpretive Statements Sinus rhythm Minimal ST elevation, inferior leads with right precordial ST segment depression suggesting inferoposterior injury Compared to ECG 05/04/2018 09:36:28 ST (T wave) deviation now present Ventricular premature complex(es) no longer present Electronically Signed On 09-28-2019 16:10:01 CDT by David Soares [email or web address] <ELECTRONICALLY SIGNED> By: David Soares MD, [facility] 09/28/191609 52 52 David Soares MD, [facility] /EPI
--- NOTE | 2019-09-28 16:13 | EKG ---
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: SANDY : 1940 Requested By: Dallin Olivas Order Number: [id number] MD: David Soares Measurements Intervals [place] Rate: 49 P: 31 GA: 177 QRS: 19 QRSD: 89 T: -36 QT: 439 QTc: 397 Interpretive Statements Sinus bradycardia Low voltage, precordial leads Anteroseptal infarct, old possible Inferior ST segment depression with T wave inversion with right precordial ST segment depression suggesting inferoposterior ischemia Compared to ECG 05/04/2018 09:36:28 Low QRS voltage now present There has been evolution of the infero-posterior ST-T changes suggesting evolving injury Electronically Signed On 09-28-2019 16:11:41 CDT by David Soares [email or web address] <ELECTRONICALLY SIGNED> By: David Soares MD, [facility] 09/28/19 1611 00 00 David Soares MD, [facility] /EPI
--- NOTE | 2019-09-28 16:19 | EKG ---
[place] [address] ELECTROCARDIOGRAM REPORT Name: KEIRY ESPINOZA Room: [address] IN M.R.#: [id number] Admission: 09/27/19 Attend Phys: Sebastian Chen Discharge: Date of : 36 Date of Service: 09/28/19 0808 Report #: [id number] THIS REPORT FOR: //name// [place] Test Date: 2019-09-28 Test Time: 08:08:41 Pat Name: KEIRY ALEXIS Department: Room: [address] Gender: M Equipment Lead: : 1940 Requested By: Dallin Olivas Order Number: [id number] Reading MD: David Soares Measurements Intervals [place] Rate: 46 P: 53 IA: 176 QRS: 18 QRSD: 96 T: 85 QT: 468 QTc: 410 Interpretive Statements Sinus bradycardia Low voltage, extremity and precordial leads Nonspecific repol abnormality, diffuse leads suggesting inferoposterior ischemia or injury Compared to ECG 05/04/2018 09:36:28 Low QRS voltage now present Sinus rate has decreased Ventricular premature complex(es) no longer present Electronically Signed On 09-28-2019 16:17:22 CDT by David Soares [email or web address] <ELECTRONICALLY SIGNED> By: David Soares MD, [facility] 09/28/19 1617 7 7 David Soares MD, [facility] /EPI
--- NOTE | 2019-09-28 17:03 | NUR ---
ICU rounds: Tele status. 2 stents placed today, Dr Soares to see, probable dc tomorrow. Pt resides at home alone. Independent. Pt uses a cpap. Supportive family. No needs.
--- NOTE | 2019-09-28 18:30 | NUR ---
PATIENT PROGRESSING WELL TOWARDS GOALS. TELE STATUS, WILL GO TO ROOM ON TELE AFTER SHIFT CHANGE. NO PAIN, NAUSEA OR SHORTNESS OF AIR AT THIS TIME. 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 BED IN LOWEST POSITION, CALL LIGHT IN REACH.
[2019-09-29 04:33] VITALS: BP 122/71
[2019-09-29 05:13] LABS: CALCIUM 8.5 mg/dL (8.5-10.1); CREATININE 1.2 mg/dL (0.6-1.3); POTASSIUM 3.9 mmol/L (3.5-5.1)
--- NOTE | 2019-09-29 05:40 | NUR ---
ASSESSMENTS COMPLETED AT BEDSIDE, PLEASE REFER TO CHARTING. MEDICATIONS ADMINISTERED PER MAR. HOURLY ROUNDING COMPLETED FOR SAFETY, NO CONCERNS NOTED AT THIS TIME. CURRENTLY IN BED WITH CALL LIGHT WITHIN REACH.
[2019-09-29 05:52] LABS: TROPONIN-I LEVEL 16.74 ng/mL (<0.06)
[2019-09-29 08:00] VITALS: BP 112/63
--- NOTE | 2019-09-29 10:57 | NUR ---
PT RESTING IN ROOM AT THIS TIME. VSS ON RA. SR ON MONITOR.PT TROPONIN ELEVATED THIS AM WHICH CARDIOLOGY REPORTS MAY BE R/T POST FL. PT CATH SITE IS CDI,ABSENT OF PAIN. PT IS TO BE DCD TO HOME TODAY. PAT
[2019-09-29 12:15] VITALS: BP 119/64
[2019-09-29 13:00] VITALS: BP 125/51
== END 2019-09-29 14:25 | disposition home or self-care (01) | DRG 246 ==
LOC: M.ERS 17:50 → M.TBA-ER 19:30 → M.ICU 19:30 → M.2W 09-28 19:48
PROVIDERS: Internal Medicine; Internal Medicine Cardiovascular Disease; Personal Emergency Response Attendant; ADMIT Internal Medicine
DX: I21.19 ST elevation (STEMI) myocardial infarction involving other coronary artery of inferior wall (principal); I50.41 Acute combined systolic (congestive) and diastolic (congestive) heart failure; T82.855A Stenosis of coronary artery stent, initial encounter; E78.00 Pure hypercholesterolemia, unspecified; G62.9 Polyneuropathy, unspecified; I11.0 Hypertensive heart disease with heart failure; M54.5 Low back pain; M19.90 Unspecified osteoarthritis, unspecified site; I25.119 Atherosclerotic heart disease of native coronary artery with unspecified angina pectoris; I25.5 Ischemic cardiomyopathy; G47.33 Obstructive sleep apnea (adult) (pediatric); Z85.46 Personal history of malignant neoplasm of prostate; I25.2 Old myocardial infarction; Z95.5 Presence of coronary angioplasty implant and graft; Z79.82 Long term (current) use of aspirin; Z79.899 Other long term (current) drug therapy; Z88.1 Allergy status to other antibiotic agents; Z88.8 Allergy status to other drugs, medicaments and biological substances; Z88.0 Allergy status to penicillin; Z72.89 Other problems related to lifestyle; Y84.0 Cardiac catheterization as the cause of abnormal reaction of the patient, or of later complication, without mention of misadventure at the time of the procedure; Y92.89 Other specified places as the place of occurrence of the external cause

== ENCOUNTER → 2020-09-17 | Outpatient (CLI) | payer OTHER ==
[~2020-09-17] MED LIST changes: +PLAVIX 75 MG TA75 MG PO; +PRILOSEC OTC20 MG PO
--- NOTE | 2020-09-17 17:29 | CARDNUC ---
[place] [address] CARDIAC NUCLEAR IMAGING REPORT Name: KEIRY ESPINOZA Room: [facility]#: [id number] Admission: 09/17/20 Attend Phys: Winter Soliz Discharge: Date of : 36 Date of Service: 09/17/20 1729 Report #: [id number] THIS REPORT FOR: cc: David Puentes John E. DO Biggs, F. Douglas MD [facility] ~ APPROVED REPORT Study performed: 09/17/2020 09:22:01 Exam: Nuclear Stress Test Indication: CAD s/p MD, CAD s/p PCI Patient Location: Out-Patient Stress Tech: Pauline Mendoza Stress Nurse: Jayashree Jimenez Tech:ZULAY Cuadra Ht: 5 ft 11 in Wt: 190 lbs BSA: 2.06 m2 BMI: 26.49 Medical History Medical History: Chest pain, dyspnea, CAD s/p MD, CAD s/p stent, HTN, Hyperlipidemia, sleep apnea/CPAP, HX prostate cancer, FHX CAD, Bradycardia. Medications: ASA 81 Mg, Atorvastatin, Carvedilol, Plavix, Lisinopril, NTG, Spironolactone. Allergies: Amoxicillin, cephalexin. Cardiac Risk Factors: Age, FHX of CAD, HTN, Hyperlipidemia, occ. bradycardia. Previous Cardiac Procedures: Myocardial infarction, PCI. Pretest Chest Pain Characteristics: No chest pain Exercise History: Physically active Physical Disabilities: None noted. Meds Held (24 hrs): Carvedilol, NTG. Stress Test Details Stress Test: Exercise stress testing was performed using a Milad protocol. HR Resting HR: 54 bpm Max Heart Rate (APMHR): 139 bpm Max HR Achieved: 125 bpm Target HR (85% APMHR): 118 bpm % of APMHR: 89 Recovery HR: 71 bpm HR response to stress: Normal [place] [address] CARDIAC NUCLEAR IMAGING REPORT Name: ALEXISKEIRY Candace Room: [facility]#: [id number] Admission: 09/17/20 Attend Phys: Winter Soliz Discharge: Date of : 36 Date of Service: 09/17/20 1729 Report #: [id number] Resting BP: 147/79 mmHg Max BP: 198/96 mmHg BP response to stress: Abnormal hypertensive response to stress. ECG Resting ECG: Sinus Rhythm, Anteroseptal MD pattern, VPCs Stress ECG: Sinus Tachycardia ST Change: Upsloping ST depression Maximum ST Deviation: 0.2 mm mm Arrhythmia: VPC's Recovery ECG: Sinus tachycardia Recovery ST Change: None Recovery Arrhythmia: VPCs Clinical Reason for Termination: Completed protocol, Maximal effort, Target HR achieved. Stress Symptoms: Dyspnea, Leg Fatigue. Exercise duration: 8 min 45 sec Exercise capacity: 10.16 METs Overall Exercise Capacity for Age: Superior Nurse Comments An 79 year old male presented for a treadmill nuclear stress test. Treadmill tolerated to stage 3, target HR achieved. Recovery unremarkable. Patient was stable and stated he felt good when escorted to Nuclear Medicine for imaging. Exercise capacity - Superior. Stress ECG Conclusion Clinical: Non-ischemic ECG: Non-ischemic Normal submaxima EKG l stress test. NM EXAM: Myocardial Perfusion REST/STRESS Imaging Protocol: Rest Tc-99m/Stress Tc-99m 1 day Resting Data Rest SPECT myocardial perfusion imaging was performed in supine position 30 minutes following the intravenous injection of 10.4 mCi of Tc-99m Sestamibi. Time of rest injection: 804 Date: 09/17/2020 [place] [address] CARDIAC NUCLEAR IMAGING REPORT Name: KEIRY ESPINOZA Room: [facility]#: [id number] Admission: 09/17/20 Attend Phys: Winter Soliz Discharge: Date of : 36 Date of Service: 09/17/20 1729 Report #: [id number] The images were gated to evaluate regional wall motion and calculate left ventricular ejection fraction. Administration Route: IV Administration Site: Right Hand Exercise Stress At peak stress, the patient was injected intravenously with 32.0mCi of Tc-99m Sestamibi. Time of stress injection: 939 Date: 09/17/2020 Administration Route: IV Administration Site: Right Hand Gated Stress SPECT was performed 30 minutes after stress injection. The images were gated to evaluate regional wall motion and calculate left ventricular ejection fraction. Prone imaging was performed. Study Quality Study: Good Artifact: Mild Soft tissue attenuation artifact Lung Uptake: Normal Study Data At rest, the left ventricular ejection fraction was 46%.. Post stress, the left ventricular ejection was 53%.. SSS: 4 SRS: 0 SDS: 4 TID = 0.92. Perfusion The resting study demonstrated a small mild apical defect as well as a small mild septal defect and a small mild to moderate anterior defect. Additionally there was a small mild inferior defect. The post stress images demonstrated a moderate in size moderate intensity apical defect a small mild septal defect and a moderate in size moderate intensity anterior defect as well as a small mild inferior defect. Prone images demonstrate only a small mild apical defect and a moderate in size and moderate intensity anterior defect. These images demonstrate a possible small mild area of anterior ischemia in the context of a small mild area of anterior infarct. This appears to be [place]-infarction ischemia. Images were reviewed using Mobile [employer]ion. Wall Motion Septal hypokinesis was seen both at rest [place] [address] CARDIAC NUCLEAR IMAGING REPORT Name: KEIRY ESPIONZA Room: [facility]#: [id number] Admission: 09/17/20 Attend Phys: Winter Soliz Discharge: Date of : 36 Date of Service: 09/17/20 1729 Report #: [id number] Nuclear Conclusion ECG Findings: negative for ischemia Clinical Findings: negative for ischemia Nuclear Findings: positive for ischemia Exercise Capacity: Superior Left Ventricular Function: abnormal Risk Study: low The exercise Cardiolite stress test demonstrates a small area of mild [place]-infarction ischemia in the anterior wall. Additionally there is mild left trickle systolic dysfunction with septal hypokinesis in the area of the prior infarct seen on the EKG. The patient was able to exercise to a fairly high level without chest pain or significant EKG changes overall this is a low risk study. <Conclusion> Clinical: Non-ischemic ECG: Non-ischemic Normal submaxima EKG l stress test. <ELECTRONICALLY SIGNED> By: Joi Hayes MD, FACC 09/17/201728 28 28 Joi Hayes MD, FACC /INF
== END ==
LOC: M.NUC 03-26 08:48 → M.CRD 04-11 08:00 → M.NUC 07:36
PROVIDERS: ATTEND Internal Medicine
DX: I25.10 Atherosclerotic heart disease of native coronary artery without angina pectoris (principal); I21.4 Non-ST elevation (NSTEMI) myocardial infarction; Z95.5 Presence of coronary angioplasty implant and graft